=== PATIENT | male | born 1985 | race Two or more races ===

== ENCOUNTER 2024-12-19 19:36 | Emergency (ER) | payer OTHER, SELFPAY ==
[2024-12-19 19:47] VITALS: BP 139/86
--- NOTE | 2024-12-19 21:29 | ED.GENMED ---
History of Present Illness
<Sadie Ramsey PA-C - Last Filed: 12/20/24 01:22>
General
Chief Complaint: Facial Problem
Source: patient
Exam Limitations: none
Time Seen by Provider: 12/19/24 21:27
Nursing documentation reviewed up to this point in time: agreed with
History of Present Illness
History of Present Illness:
Patient is a 39-year-old male who presents to the emergency department with girlfriend for evaluation of throat pain. Patient states that starting yesterday afternoon he developed pain in the left side of his throat, significantly worse with
swallowing. He was not able to eat/drink much due to discomfort. Pain persisted into today prompting visit to the emergency department. Patient denies any fever or chills. He has no headache, cough, or other URI symptoms. No chest pain,
shortness of breath or any difficulty breathing.
Patient denies any recent falls or trauma. No known sick contacts.
Patient has not tried any [id number]-mbw-[id number] analgesics.
Review of Systems
<Sadie Ramsey PA-C - Last Filed: 12/20/24 01:22>
Review of Systems
Allergies reviewed?: Yes
All Other Systems: ROS reviewed and negative except as documented in HPI and ROS
Phy Exam
<Sadie Ramsey PA-C - Last Filed: 12/20/24 01:22>
Physical Exam
Physical Exam:
Vitals: Patient's vital signs are stable. Afebrile
General: Patient is well appearing, no acute distress. Nontoxic appearing
Skin: Warm and dry, no rashes or lesions
Head: Normocephalic, atraumatic
Eyes: Sclera nonicteric.
Throat: Mild pharyngeal erythema. No tonsillar exudates. Uvula midline. No asymmetry or evidence of TISSUE PACKER. No obvious dental abscess or areas of fluctuance. Protecting airway
Neck: Normal ROM, no cervical spine tenderness, no meningismus. No erythema or obvious swelling to neck. 1 palpable lymph node in left submandibular region
Cardiac: Regular rate and rhythm, no murmurs.
Pulm: Normal respiratory effort, no wheezes, rales, rhonchi heard on exam
Abdomen: No abdominal tenderness.
Extremities: No evidence of cyanosis or edema
Neuro: AAOx3. Grossly intact.
Psychiatric: Normal affect.
Course
<Sadie Ramsey PA-C - Last Filed: 12/20/24 01:22>
Orders/Labs/Results
Orders:
Orders
12/19/24 22:09
0.9% Sodium Chloride 1000 ml [Nss] 1,000 ml IV BOLUS
Dexamethasone Sod Phosphate [Decadron] 10 mg IV NOW STA
Ketorolac [Toradol] 15 mg IV NOW STA
12/19/24 22:16
COVID-19 Antigen Urgent
Source: Nasal Swab
Complete Blood Count/With Diff Urgent
Comprehensive Metabolic Panel Urgent
Monotest Urgent
Influenza A+B Rapid Molecular Urgent
CELINE Source: Nasal Swab
Specimen Description:
Rapid Strep Group A Urgent
CELINE Source: Throat/Pharynx
Specimen Description:
Date Specimen was Collected: 12/19/24
Time Specimen was Collected: 22:14
Throat Culture [Throat Culture, Comprehensive] Urgent
CELINE Source: Throat/Pharynx
Specimen Description:
Date Specimen was Collected: 12/19/24
Time Specimen was Collected: 22:14
Abnormal Lab Results
12/19/24
22:16
MCH 31.2 H pg
(27.0-31.0)
Absolute Neuts (auto) 7.9 H 10^3/uL
(1.4-6.5)
Absolute Monos (auto) 0.7 H 10^3/uL
(0.1-0.6)
Neutrophils % 79.0 H %
(42.2-75.2)
Lymphocytes % 12.4 L %
(20.5-51.1)
12/19/24 22:16
12/19/24 22:16
Vital Signs
Initial and Last Documented VS:
Initial Vital Signs
Temp Pulse Resp BP Pulse Ox
98.4 F 90 18 139/86 100
12/19/24 19:47 12/19/24 19:47 12/19/24 19:47 12/19/24 19:47 12/19/24 19:47
Last Documented Vital Signs
Temp Pulse Resp BP Pulse Ox
98.4 F 77 15 115/85 97
12/19/24 19:47 12/19/24 23:52 12/19/24 23:52 12/19/24 23:52 12/19/24 23:52
<Prosper Bustos, - Last Filed: 12/20/24 00:37>
Orders/Labs/Results
Orders:
Orders
12/19/24 22:09
0.9% Sodium Chloride 1000 ml [Nss] 1,000 ml IV BOLUS
Dexamethasone Sod Phosphate [Decadron] 10 mg IV NOW STA
Ketorolac [Toradol] 15 mg IV NOW STA
12/19/24 22:16
COVID-19 Antigen Urgent
Source: Nasal Swab
Complete Blood Count/With Diff Urgent
Comprehensive Metabolic Panel Urgent
Monotest Urgent
Influenza A+B Rapid Molecular Urgent
CELINE Source: Nasal Swab
Specimen Description:
Rapid Strep Group A Urgent
CELINE Source: Throat/Pharynx
Specimen Description:
Date Specimen was Collected: 12/19/24
Time Specimen was Collected: 22:14
Throat Culture [Throat Culture, Comprehensive] Urgent
CELINE Source: Throat/Pharynx
Specimen Description:
Date Specimen was Collected: 12/19/24
Time Specimen was Collected: 22:14
Abnormal Lab Results
12/19/24
22:16
MCH 31.2 H pg
(27.0-31.0)
Absolute Neuts (auto) 7.9 H 10^3/uL
(1.4-6.5)
Absolute Monos (auto) 0.7 H 10^3/uL
(0.1-0.6)
Neutrophils % 79.0 H %
(42.2-75.2)
Lymphocytes % 12.4 L %
(20.5-51.1)
12/19/24 22:16
12/19/24 22:16
Vital Signs
Initial and Last Documented VS:
Initial Vital Signs
Temp Pulse Resp BP Pulse Ox
98.4 F 90 18 139/86 100
12/19/24 19:47 12/19/24 19:47 12/19/24 19:47 12/19/24 19:47 12/19/24 19:47
Last Documented Vital Signs
Temp Pulse Resp BP Pulse Ox
98.4 F 77 15 115/85 97
12/19/24 19:47 12/19/24 23:52 12/19/24 23:52 12/19/24 23:52 12/19/24 23:52
<Sadie Ramsey PA-C - Last Filed: 12/20/24 01:22>
MDM/Problems Addressed
Differential Diagnosis Includes:
Not limited to: Viral illness, tonsillitis, group A strep pharyngitis, tonsilloliths, parotitis, sialadenitis, peritonsillar abscess, etc.
MDM/Problems Addressed:
39-year-old male presenting with sore throat, odynophagia X 1 day. No associated fever, cough, headache/neck pain. Patient mildly hypertensive with otherwise stable vital signs on arrival. He is afebrile. Physical exam as above. Patient
well-appearing, nontoxic. No obvious swelling, erythema, or warmth to left face/neck. Oral exam reveals midline uvula without any asymmetry or evidence of peritonsillar abscess. No significant tonsillar edema or exudates. Tongue is mobile
without any obvious dental infection/abscess. Patient is handling oral secretions and has fluid, clear speech. No trismus
Differential includes possible viral illness, pharyngitis, tonsillitis, etc. Lower suspicion for bacterial infection such as abscess. ED plan: Basic labs, viral studies, rapid strep. Will treat symptoms with Toradol, Decadron, IV fluids. Will
closely monitor and reassess.
Update: Labs reviewed. No clinically significant abnormalities. Viral studies negative including COVID, influenza, mono. Rapid strep negative. Patient has remained hemodynamically stable and afebrile. On reassessment�he states his symptoms are
essentially gone. He is swallowing without difficulty and drinking a cup of water. Clinical picture most consistent with likely viral pharyngitis/tonsillitis. Much lower suspicion for abscess or other emergent process given exam, unremarkable lab
work, and complete improvement in symptoms with Toradol. Did consider CT scan however patient prefers discharge home as symptoms have improved. Discussed supportive care at home including NSAIDs, p.o. hydration. Discussed very strict return
precautions including any signs of worsening infection or difficulty swallowing/breathing. Patient and patient's significant other comfortable with plan. All questions answered.
Patient seen in conjunction with attending physician
Chronic conditions affecting care:
N/A
Acute Exacerbation and/or Progression of Chronic Illness:
N/A
<Sadie Ramsey PA-C - Last Filed: 12/20/24 01:22>
*Pulse Oximetry
SaO2: 100
Oxygen Mode of Delivery: Room air
Patient hypoxic: no
*EKG
Interpreted by ED Provider?: NA
*Street Supervisor Interpretation
Rate: Street Supervisor- N/A
*Critical Care Note
Total Time (30-74mins, 75-104mins- exclusive of procedures): Not Applicable
<Sadie Ramsey PA-C - Last Filed: 12/20/24 01:22>
Patient Management
Discussion with other providers: Mechanical Pencils Assembler (Case discussed with attending physician)
ED Attending Note
<Sadie Ramsey PA-C - Last Filed: 12/20/24 01:22>
-
Portions of this chart may have been created with voice recognition software.� Occasional wrong word or��sound alike� substitutions may have occurred due to the inherent limitations of voice recognition software.
<Prosper Bustos DO - Last Filed: 12/20/24 00:37>
ED Attending Note
Patient seen and examined by attending physician: Yes
ED Attending Note:
39-year-old male with sore throat. States that he has painful swallowing. No breathing issues. He did not attempt to take [id number] medications. Upon arrival he received NSAID which completely eliminated his pain. O patient was seen in
conjunction with the PA. I have reviewed and agree with the history and treatment plan presented. On my independent physical exam, patient is awake, alert, and oriented x3. Oropharynx is clear uvula is midline tonsillar pillars are intact and not
edematous. The posterior oropharynx does not appear to be red or swollen. There are no tonsilar stones. Tongue is mobile with full range of motion. External exam shows no swelling. There is a small lymph node on the left side in the
submandibular region. There is no evidence of abscess. Patient has no complaints. Patient to be discharged home.
Discharge Plan
Departure
Patient Disposition: Home (Routine Discharge)
Date of Disposition: 12/19/24
Time of Disposition: 23:45
Patient with high blood pressure during this ER visit?: Yes
Covid-19: Negative COVID-19
Discharge Problem:
Throat pain
Instructions: Sore throat in adults - ED (DC), BLOOD PRESSURE
Prescriptions:
New
diclofenac sodium 75 mg tablet,delayed release (DR/EC)
75 mg PO BID PRN (Reason: pain) Qty: 10 0RF
Referrals:
Sami Cordova MD [Family Provider, Internal Medicine] - Follow up in 5-7 days
Activity Restrictions/Additional Instructions:
RETURN TO THE EMERGENCY DEPARTMENT ANY FEVERS, WORSENING THROAT PAIN, SWELLING OF MOUTH OR TONGUE, DIFFICULTY SWALLOWING, REDNESS OR SWELLING OF NECK, OR ANY OTHER CONCERNS
- As discussed�your lab work and viral studies were negative in the emergency department today. You were given IV Toradol and IV steroids.
- Prescription for diclofenac to your pharmacy. You can take this twice a day as needed for throat pain.
- It is important stay well-hydrated.
- Follow-up with your primary care provider for further evaluation/management to ensure that your symptoms improve
Monitor your symptoms closely and return to the emergency department with any acute worsening/new symptoms or any signs of worsening infection
Interventions
Interventions:
*Risk Screen - Suicide Last Done: 12/19/24 20:11
*General Assessment Last Done: 12/19/24 22:39
*Neglect/Abuse Screening Last Done: 12/19/24 22:39
*ED- Fall Risk Assessment Last Done: 12/19/24 22:39
*ED COVID-19 Vaccine History Last Done: 12/19/24 22:39
*Nursing Disposition Last Done: 12/19/24 23:55
ED- Neurological Assessment Last Done: 12/19/24 22:39
ED-Skin Assessment Last Done: 12/19/24 22:39
Discharge Date and Time
Discharge Date/Time: 12/19/24 23:55
Print Language: [id number]
[2024-12-19] MEDS: DECADRON 10 MG IV (22:19)
[2024-12-19] MEDS: TORADOL 15 MG IV (22:19)
[2024-12-19] MEDS: NSS 1000 IV (22:19)
[2024-12-19 22:26] LABS: Hematocrit 43.0 % (39.0-52.0); Hemoglobin 15.3 g/dL (13.0-18.0); Mean Corp Hgb Conc. 35.6 g/dL (33.0-37.0); Mean Corpuscular Volume 87.6 fL (80.0-94.0); Nucleated Red Blood Cells % 0 % (-); Platelet Count 172 10^3/uL (130-400); Red Cell Dist. Width 11.5 % (11.5-14.5)
[2024-12-19 22:47] LABS: COVID-19 Antigen Negative (Negative)
[2024-12-19 22:53] LABS: ALT (SGPT) 49 U/L (0-50); AST (SGOT) 25 U/L (17-59); Albumin 5.0 g/dl (3.5-5.0); Alkaline Phosphatase 69 U/L (38-126); Blood Urea Nitrogen 12 mg/dl (9-20); Calcium 9.7 mg/dl (8.4-10.2); Carbon Dioxide 29 mmol/L (22-30); Chloride 102 mmol/L (98-107); Glucose 87 mg/dl (70-99); Potassium 4.2 mmol/L (3.5-5.1); Sodium 138 mmol/L (135-145); Total Protein 7.8 g/dl (6.3-8.2); eGFR > 60.00
[2024-12-19 23:05] VITALS: BP 110/73
[2024-12-19 23:06] VITALS: BMI 33.1
[2024-12-19 23:52] VITALS: BP 115/85
== END 2024-12-19 23:55 | disposition home or self-care (01) ==
LOC: EMR 19:36
PROVIDERS: Physician Assistant; EMERGENCY PHYSICIAN Student in an Organized Health Care Education/Training Program; FAMILY PHYSICIAN Internal Medicine
DX: J02.9 Acute pharyngitis, unspecified (principal); R03.0 Elevated blood-pressure reading, without diagnosis of hypertension
CPT/HCPCS: 99284; 96374; 96375; 96361; 80053; 85025; 86308; 87070; 87502; 87811; 87880